=== PATIENT | male | born 1925 | race Caucasian/White ===

== ENCOUNTER 2016-12-24 15:36 | Outpatient (CLI) | payer MEDICARE, OTHER | END 2016-12-24 15:37 | disposition critical access hospital (66) | LOC: EMS 15:36 | PROVIDERS: ATTEND Surgery | DX: R47.9 Unspecified speech disturbances (principal); R15.9 Full incontinence of feces; R32 Unspecified urinary incontinence | CPT/HCPCS: A0425; A0429 ==

== ENCOUNTER 2016-12-24 15:57 | Emergency (ER) | payer MEDICARE, OTHER ==
--- NOTE | 2016-12-24 16:37 | ED Physician Documentation ---
History of Present Illness - Stated complaint Stated Complaint: POSS CVA - Chief complaint Chief Complaint: Neuro - Additonal information Additional information: Patient is a 89-year-old male who has a history of bleeding ulcer in his past status post what appears to be antrectomy possibly vagotomy. This was done many many years ago. He is currently on omeprazole. 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 The patient presents with acute onset of difficulty in speaking. We think that symptoms occurred somewhere after 1:00. There is some data suggesting that he be been normal up to 2 PM but we are not quite 100% sure. Is quite clear however that the onset of symptoms somewhere between 1 and 2:00 probably closer to 2 PM. The patient was in his normal state of health over the last few days without any complaints or problems whatsoever.He was out tending to his lawn and roses earlier in the day and had people come over and had a normal interaction with them sometime between 1 and 2 the patient went to the bathroom had a episode of stool incontinence and had the onset of severe aphasia to the point where he could not speak. He also said that he had some difficulty with the operation of his right arm around this time. He denied any headache, chest pain, shortness of breath nausea vomiting, fever chills or any preceding illness. He denies ever having a stroke before. Review of systems: For pertinent positive and negatives in the review of systems please see history of present illness. Otherwise all other systems have been reviewed and are negative. Dragon disclaimer: Parts of this medical record were created using voice recognition technology. Because of the inherent limitations of this system occasional same sounding word substitutions do occur and persist despite proofreading. Please read the document for context. Review of Systems Ten Systems: 10 systems reviewed and negative Constitutional: denies: Fever, Chills, Myalgias Eyes: denies: Loss of vision, Decreased vision, Photophobia Ears: denies: Loss of hearing, Ear pain, Drainage/discharge Nose: denies: Rhinorrhea / runny nose, Foreign Body Cardiac: denies: Palpitations GI: denies: Abdominal Pain, Abdominal Swelling, Nausea, Vomiting : reports: Incontinent, Hematuria, Discharge. denies: Dysuria, Frequency Musculoskeletal: reports: Neck pain, Back pain. denies: Extremity pain Neurologic: reports: Difficulty speaking. denies: Generalized weakness, Focal weakness, Numbness PD PAST MEDICAL HISTORY - Past Medical History GI: GERD Other Past Medical History: claucoma - Past Surgical History Past Surgical History: Yes - Present Medications Home Medications: Ambulatory Orders Medication Instructions Recorded Confirmed Brimonidine Tartrate/Timolol 1 drops EACHEYE DAILY 12/24/16 12/24/16 [Combigan 0.2%-0.5% Eye Drops] Brimonidine Tartrate/Timolol 1 drops EACHEYE DAILY 12/24/16 12/24/16 [Combigan 0.2%-0.5% Eye Drops] Brinzolamide 1% Ophth Drops [Azopt 1 drops EACHEYE DAILY 12/24/16 12/24/16 1% Ophth Drops] Omeprazole [PriLOSEC] 20 mg PO DAILY 12/24/16 12/24/16 Tamsulosin HCl [Flomax] 0.4 mg PO DAILY 12/24/16 12/24/16 - Allergies Allergies/Adverse Reactions: Allergies Allergy/AdvReac Type Severity Reaction Status Date / Time amoxicillin Allergy Unknown Verified 12/24/16 16:10 - Social History Does the pt smoke?: Yes Smoking Status: Current some day smoker Does the pt drink ETOH?: Yes Does the pt have substance abuse?: No PD ED PE NORMAL - Vitals Vital signs reviewed: Yes - General General: Alert and oriented X 3, No acute distress, Well developed/nourished, Other (Obvious moderate expressive aphasia with loss of fluency and difficulty in finding words) - HEENT HEENT: Atraumatic, PERRL, EOMI, Ears normal, Pharynx benign, Dentition benign - Neck Neck: Supple, no meningeal sign - Cardiac Cardiac: RRR, No murmur, No gallop, No rub - Respiratory Respiratory: No respiratory distress, Clear bilaterally - Abdomen Abdomen: Normal bowel sounds, Soft, Non tender, Non distended - Back Back: No CVA TTP - Derm Derm: Normal color, Warm and dry - Extremities Extremities: No deformity, No tenderness to palpate - Psych Psych: Normal mood, Normal affect - Free text exam Free text exam: Patient is 89-year-old male who ambulates at home with just a cane. 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 He had what we feel is a acute onset of a stroke somewhere around 2 PM. We were not able to nail down the time Conclusively but we think Is pretty close to 2 PM as far as we can tell. On initial presentation the patient had stable vital signs was alert and oriented and on NIH stroke testing he had a moderate aphasia. While he had normal strength in the right upper extremity he was somewhat clumsy in its movement. There is also question of a right sided facial droop that he could overpower on forced smiling. Because of his blindness we could not ascertain visual field cuts. Based on the state I thought that the patient probably had a NIH stroke scale of 4-5 but was concerned about the severe aphasia and got neurology involved at [facility]. A CT scan of the head showed an oldLeft sidedIschemic infarctThat was old and the patient was unaware about. There is no evidence of any acute ischemic infarct. The patient is also given a liter of normal saline. The EKG demonstrates a normal sinus rhythm with chest x-ray shows no acute disease. We felt that given the risk versus benefit that the patient is a good candidate for TPA administration we did discuss the risks and benefits with him and consent was obtained and he was subsequently given TPA here in emergency department. Next a CTA of the head and neck was ordered the results of this are pending. Patient's renal function is normal and routine labs are within normal limits at this time.At this time there is no change in the patient 's status blood pressure is well controlled he is not improved nor worsened and we are awaiting transfer to [facility] via helicopter at this point. Disposition transfer to [facility] Clinical impression: 1. Acute ischemic infarcts and a stroke scale 4-5 with Moderate to severe aphasia Results - Vitals Vitals: Vital Signs - 24 hr 12/24/16 12/24/16 12/24/16 15:58 17:08 17:30 Temperature 35.9 C L Heart Rate 56 L 64 59 L Respiratory 20 18 18 Rate Blood Pressure 168/76 H 184/92 H 184/88 H O2 Saturation 98 96 99 12/24/16 17:33 Temperature Heart Rate 62 Respiratory 16 Rate Blood Pressure 155/94 H O2 Saturation 99 Oxygen O2 Source Room air - Labs Labs: Laboratory Tests 12/24/16 12/24/16 12/24/16 16:05 16:05 16:05 WBC RBC Hgb Hct MCV MCH MCHC RDW Plt Count MPV Neut # Lymph # [place] # Eos # Baso # Absolute Nucleated RBC Nucleated RBCs PT INR APTT 25.1 Sodium 135 Potassium 4.3 Chloride 102 Carbon Dioxide 26 Anion Gap 7.0 BUN 17 Creatinine 1.0 Estimated GFR (MDRD) 70 L Glucose 136 H Calcium 8.8 Total Bilirubin 0.6 AST 23 ALT 16 Alkaline Phosphatase 67 Troponin I < 0.04 Total Protein 7.0 Albumin 3.9 Globulin 3.1 Albumin/Globulin Ratio 1.3 Lipase 26 12/24/16 12/24/16 16:05 16:05 WBC 7.2 RBC 4.43 L Hgb 14.5 Hct 44.1 MCV 99.6 H MCH 32.8 H MCHC 32.9 RDW 13.3 Plt Count 177 MPV 8.8 Neut # 5.0 Lymph # 1.5 [place] # 0.5 Eos # 0.1 Baso # 0.1 Absolute Nucleated RBC 0.00 Nucleated RBCs 0.0 PT 10.9 INR 1.0 APTT Sodium Potassium Chloride Carbon Dioxide Anion Gap BUN Creatinine Estimated GFR (MDRD) Glucose Calcium Total Bilirubin AST ALT Alkaline Phosphatase Troponin I Total Protein Albumin Globulin Albumin/Globulin Ratio Lipase
[2016-12-24 16:39] LABS: ALBUMIN/GLOBULIN RATIO 1.3 (1.0-2.2); BILIRUBIN,TOTAL 0.6 mg/dL (0.2-1.0); CALCIUM 8.8 mg/dL (8.5-10.3); POTASSIUM 4.3 mmol/L (3.5-5.0)
--- NOTE | 2016-12-24 16:52 | CT Preliminary Report ---
Exam: CT Head W/O IMPRESSION: 1. Generalized age-related cortical atrophic changes without evidence of acute intracranial abnormali ty. 2. 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 [facility] The call report notification system was initiated by Dr. David Pascal at 16:44 hrs on 12/24/16. The above findings were discussed with provider Nurse Mariano by Dr. David Pascal at 16:50 hrs on . SITE ID: [id number]
--- NOTE | 2016-12-24 16:55 | CT Report ---
EXAM: CT HEAD EXAM DATE: 12/24/2016 04:34 PM. CLINICAL HISTORY: CVA. COMPARISON: None. TECHNIQUE: Multiaxial CT images were obtained from the foramen magnum to the vertex. IV contrast: Non e. Reformats: Coronal. In accordance with CT protocol optimization, one or more of the following dose reduction techniques w ere utilized for this exam: automated exposure control, adjustment of mA and/or KV based on patient s ize, or use of iterative reconstructive technique. 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 No intraparenchymal hemorrhage. No evidence of mass, midline shift, or CT findings of acute infarction. Weir-white differentiation is distinct. Extraaxial Spaces: Normal for age. No subdural or epidural collections identified. Ventricles: The ventricles and cortical sulci are enlarged, consistent with age-related tissue loss. Sinuses: Imaged paranasal sinuses, orbits, and mastoids show no significant abnormality. Bones: No evidence of fracture or calvarial defect. Other: Diffuse chronic microangiopathic white matter changes are evident. IMPRESSION: 1. Generalized age-related cortical atrophic changes without evidence of acute intracranial abnormali ty. 2. 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 RAD[facility] The call report notification system was initiated by Dr. David Pascal at 16:44 hrs on 12/24/16. The above findings were discussed with provider Nurse Quintana by Dr. David Pascal at 16:50 hrs on . Referring Provider Line: [phone] SITE ID: [id number]
[2016-12-24] MEDS ORDERED: ALTEPLASE 81 MG in WATER FOR INJECTION,STERILE 81 ML IV STA (17:10)
[2016-12-24] MEDS ORDERED: ALTEPLASE 100 MG VIAL IV STA (17:11)
--- NOTE | 2016-12-24 17:16 | XRAY Preliminary Report ---
Exam: XR Chest 1 View IMPRESSION: Normal single view chest. [facility] SITE ID: [id number]
[2016-12-24] MEDS ORDERED: ALTEPLASE 100 MG in WATER FOR INJECTION,STERILE 100 ML IV STA (17:22)
--- NOTE | 2016-12-24 17:30 | XRAY Report ---
EXAM: CHEST RADIOGRAPHY EXAM DATE: 12/24/2016 04:45 PM. CLINICAL HISTORY: Aphasia, mild right upper extremity ataxia. COMPARISON: None. TECHNIQUE: 1 view. FINDINGS: Lungs/Pleura: No focal opacities evident. No pleural effusion. No pneumothorax. Mediastinum: Within exam limitations, cardiomediastinal contour is normal. Other: None. IMPRESSION: Normal single view chest. [facility] Referring Provider Line: [phone] SITE ID: [id number]
[2016-12-24 17:33] VITALS: BP 155/94
[2016-12-24 17:39] LABS: BASOPHILS # (AUTO) 0.1 10^3/uL (0.0-0.1); BASOPHILS % (AUTO) 0.9 %; EOSINOPHILS # (AUTO) 0.1 10^3/uL (0.0-0.7); HCT - HEMATOCRIT 44.1 % (42.0-52.0); HGB - HEMOGLOBIN 14.5 g/dL (14.0-18.0); LYMPHOCYTES # (AUTO) 1.5 10^3/uL (1.5-3.5); LYMPHOCYTES % (AUTO) 21.1 %; MEAN CORPUSCULAR HEMOGLOBIN 32.8 pg (27.0-31.0); MEAN CORPUSCULAR HGB CONC 32.9 g/dL (32.0-36.0); MEAN CORPUSCULAR VOLUME 99.6 fL (80.0-94.0); MEAN PLATELET VOLUME 8.8 fL (7.4-11.4); MONOCYTES # (AUTO) 0.5 10^3/uL (0.0-1.0); MONOCYTES % (AUTO) 7.6 %; NEUTROPHILS % (AUTO) 69.4 %; RED BLOOD COUNT 4.43 10^6/uL (4.70-6.10); RED CELL DISTRIBUTION WIDTH 13.3 % (12.0-15.0); UNCORRECTED WHITE BLOOD COUNT 7.2 x10^3/uL; WHITE BLOOD COUNT 7.2 x10^3/uL (4.8-10.8)
[2016-12-24 17:51] LABS: PT - PROTHROMBIN TIME 10.9 secs (9.9-12.6)
[2016-12-24] MEDS ORDERED: SODIUM CHLORIDE 0.9% 500 ML IV ONE (17:52)
[2016-12-24] MEDS ORDERED: IOPAMIDOL-300 100 ML VIAL IVP ONE (18:22)
--- NOTE | 2016-12-24 18:47 | CT Preliminary Report ---
Exam: CT Head Angio IMPRESSION: 1. Normal CTA of the head. No significant vascular stenosis or aneurysm. [facility] SITE ID: [id number]
--- NOTE | 2016-12-24 18:49 | CT Report ---
EXAM: CT ANGIOGRAM HEAD EXAM DATE: 12/24/2016 06:20 PM. CLINICAL HISTORY: 89-year-old man with aphasia. COMPARISON: Noncontrast head CT done immediately before. TECHNIQUE: Routine helical CTA imaging was performed through the head. IV Contrast: 100 cc Isovue 300 . Reconstructions: Routine multiplanar 3D MIP reconstructions. NASCET Criteria are used for stenosis measurements. In accordance with CT protocol optimization, one or more of the following dose reduction techniques w ere utilized for this exam: automated exposure control, adjustment of mA and/or KV based on patient s ize, or use of iterative reconstructive technique. FINDINGS: CTA HEAD: RIGHT: Visualized Internal Carotid Artery: Patent without significant stenosis. There is atherosclerotic vasyl que along the siphon. No evidence of aneurysm. Anterior Cerebral Artery: Patent without significant stenosis or aneurysm. Middle Cerebral Artery: Patent without significant stenosis or aneurysm. Posterior Cerebral Artery: Patent without significant stenosis or aneurysm. Posterior Communicating Artery: Not well seen. Visualized Vertebral Artery: Patent without significant stenosis or dissection. Mild atherosclerotic plaque is present along the intradural segment. LEFT: Visualized Internal Carotid Artery: Patent without significant stenosis. There is atherosclerotic vasyl que along the siphon. No evidence of aneurysm. Anterior Cerebral Artery: Patent without significant stenosis or aneurysm. Middle Cerebral Artery: Patent without significant stenosis or aneurysm. Posterior Cerebral Artery: Patent without significant stenosis or aneurysm. Posterior Communicating Artery: Not well seen. Visualized Vertebral Artery: Patent without significant stenosis or dissection. CENTRAL: Anterior Communicating Artery: Patent. No aneurysm. Basilar: Patent without significant stenosis, dissection, or aneurysm. Dural Venous Sinuses and Major Central Veins: Patent. The right transverse and sigmoid sinuses are co ngenitally dominant. POSTCONTRAST HEAD: No abnormal enhancement. Please see separate noncontrast exam for complete descrip tion of noncontrast findings. IMPRESSION: 1. Normal CTA of the head. No significant vascular stenosis or aneurysm. [facility] Referring Provider Line: [phone] SITE ID: [id number]
--- NOTE | 2016-12-24 18:55 | CT Report ---
EXAM: CT ANGIOGRAM NECK EXAM DATE: 12/24/2016 06:23 PM. CLINICAL HISTORY: 89-year-old man with aphasia. COMPARISON: None. TECHNIQUE: Routine axial helical imaging was performed from the skull base through the aortic arch. I V Contrast: Yes. Reconstructions: Routine multiplanar 3D MIP reconstructions. Evaluation of arterial stenosis is based on a NASCET method of measurement. In accordance with CT protocol optimization, one or more of the following dose reduction techniques w ere utilized for this exam: automated exposure control, adjustment of mA and/or KV based on patient s ize, or use of iterative reconstructive technique. FINDINGS: Right Carotid: The common carotid artery is patent without significant stenosis. Atherosclerotic plaq ue at the bifurcation result in less than 25% luminal narrowing of the proximal ICA by NASCET criteri a. The remainder of the cervical ICA is patent without significant stenosis. The bifurcation and prox imal cervical ICA are retropharyngeal in course. No evidence of dissection. External carotid artery i s unremarkable. Left Carotid: The common carotid artery is patent without significant stenosis. Atherosclerotic plaqu e, primarily noncalcified, at the bifurcation result in less than 50% luminal narrowing by NASCET cri teria of the proximal ICA. No evidence of dissection. The external carotid artery is unremarkable. Right vertebral: Patent without significant stenosis or dissection. Mild atherosclerotic plaque is pr esent along the intradural segment. Left vertebral: Patent without significant stenosis or dissection. Other: Limited evaluation of the neck soft tissues is unremarkable. Lung apices are clear. General ch anges are present in the cervical spine, but no evidence of acute fracture or malalignment. IMPRESSION: 1. Carotid arteries are patent without significant stenosis or dissection. Atherosclerotic plaque res ult in less than 50% luminal narrowing of the proximal left internal carotid artery and less than 25% luminal narrowing of the proximal right internal carotid artery. 2. Vertebral arteries are pink without significant stenosis or dissection. [facility] Referring Provider Line: [phone] SITE ID: [id number]
== END 2016-12-24 18:30 | disposition short-term general hospital (02) ==
LOC: EDUNIT# → ED 15:57
DX: I63.9 Cerebral infarction, unspecified (principal); R47.01 Aphasia; R29.704 NIHSS score 4; I45.2 Bifascicular block; R94.31 Abnormal electrocardiogram [ECG] [EKG]; N40.0 Benign prostatic hyperplasia without lower urinary tract symptoms; H40.9 Unspecified glaucoma; H54.8 Legal blindness, as defined in USA; Z86.69 Personal history of other diseases of the nervous system and sense organs; Z87.11 Personal history of peptic ulcer disease; K21.9 Gastro-esophageal reflux disease without esophagitis; F17.200 Nicotine dependence, unspecified, uncomplicated
CPT/HCPCS: 36415; 70450; 70496; 70498; 71010; 80053; 83690; 84484; 85025; 85610; 85730; 93005; 96374; 96376; 99284; 99285; J2997; Q9967

== ENCOUNTER 2016-12-27 21:33 | Outpatient (CLI) | payer MEDICARE, OTHER | END 2016-12-27 21:34 | disposition critical access hospital (66) | LOC: EMS 21:33 | PROVIDERS: ATTEND Surgery | DX: R40.20 Unspecified coma (principal) | CPT/HCPCS: A0425; A0427 ==

== ENCOUNTER 2016-12-27 21:48 | Observation (INO) | payer MEDICARE, OTHER ==
--- NOTE | 2016-12-27 22:15 | ED Physician Documentation ---
PD HPI SEIZURE - Stated complaint Stated Complaint: SEIZURE ACTIVITY/STROKE - Chief complaint Chief Complaint: Neuro - History obtained from History obtained from: Friend, EMS - History of Present Illness Timing - onset: Today (Just prior to arrival.) Witnessed: Witnessed Number of seizures: Single, Lasted minutes (Lasted approximately 4 minutes.) Description of seizure activity: Generalized, Tonic clonic Injury during seizure: Bit tongue History of seizures: First seizure Contributing factors: Other (Recent CVA.) Similar symptoms before: Has not had sx before Recently seen: Admitted (Discharged from [facility] today after a four- day hospitalization for ischemic stroke.) - Additional information Additional information: The patient is an 89-year-old male who arrives via ambulance after a witnessed seizure just prior to arrival. 4 days ago he was seen here with a stroke involving the left posterior parietal region. He received TPA and was transported by helicopter to [facility]. He was discharged from that hospital today, about 3 hours ago. He was sitting on the edge of the bed when his daughter noticed his right arm clench, and then he developed generalized tonic-clonic seizure activity. She laid him onto the bed and called 911. She noted frothing from his mouth. When medics arrived the patient was post ictal, with a blood sugar of 148. He remains somnolent upon arrival to the emergency department, but does respond to tactile. He has no prior history of seizure disorder. In addition to recent stroke, he was noted to have atrial fibrillation during his hospitalization. He does not take anticoagulation medication. Review of Systems Unable to obtain: AMS PD PAST MEDICAL HISTORY - Past Medical History Past Medical History: Yes Cardiovascular: Atrial fibrillation Neuro: CVA, TIA GI: GERD - Past Surgical History Past Surgical History: Yes - Present Medications Home Medications: Ambulatory Orders Medication Instructions Recorded Confirmed Brinzolamide 1% Ophth Drops [Azopt 1 drops RIGHTEYE BID 12/24/16 12/28/16 1% Ophth Drops] Omeprazole [PriLOSEC] 20 mg PO BID 12/24/16 12/28/16 Tamsulosin HCl [Flomax] 0.4 mg PO DAILY 12/24/16 12/28/16 Aspirin 325 mg ORAL DAILY 12/28/16 12/28/16 Atorvastatin [Lipitor] 1 tab ORAL DAILY 12/28/16 12/28/16 Bimatoprost 0.01% Ophth Dops 1 drops RIGHTEYE DAILY 12/28/16 12/28/16 [Lumigan 0.01% Ophth Drops] Brimonidine Tartrate/Timolol 1 drops RIGHTEYE BID 12/28/16 12/28/16 [Combigan 0.2%-0.5% Eye Drops] Lisinopril 1 tab ORAL DAILY 12/28/16 12/28/16 - Allergies Allergies/Adverse Reactions: Allergies Allergy/AdvReac Type Severity Reaction Status Date / Time amoxicillin Allergy Unknown Verified 12/24/16 16:10 - Living Situation Living Arrangement: reports: At home - Social History Does the pt smoke?: Yes Smoking Status: Current some day smoker Does the pt drink ETOH?: Yes Does the pt have substance abuse?: No - Immunizations Immunizations are current?: Yes - POLST Patient has POLST: No PD ED PE NORMAL - Vitals Vital signs reviewed: Yes (hypertensive) - General General: Well developed/nourished, Other (Somnolent but responds to tactile stimulation.) - HEENT HEENT: Other (Blindness baseline. Bite arora on the right s) - Neck Neck: No adenopathy, No JVD - Cardiac Cardiac: RRR, No murmur - Respiratory Respiratory: No respiratory distress, Clear bilaterally - Abdomen Abdomen: Soft, Non tender - Back Back: No spinal TTP - Derm Derm: No rash - Extremities Extremities: Other (Trace pedal edema bilaterally.) - Neuro Neuro: Other (Initially somnolent, but gradually recovered to baseline level of awareness over the course of about 30 minutes. No focal motor or sensory deficit.) Results - Vitals Vitals: Vital Signs - 24 hr 12/27/16 12/27/16 12/27/16 21:49 22:39 22:43 Temperature 36.8 C Heart Rate 83 69 Respiratory 10 L 20 Rate Blood Pressure 163/90 H 95/74 139/76 H O2 Saturation 91 L 99 12/27/16 12/27/16 22:54 23:23 Temperature Heart Rate 68 72 Respiratory 18 18 Rate Blood Pressure 142/65 H 145/81 H O2 Saturation 96 100 Oxygen O2 Source Nasal cannula - EKG (time done) 21:56 Rate: Rate (enter#) (79) Rhythm: NSR Intervals: Prolonged PA, RBBB, Other (Left posterior fascicular block.) Compare to prior EKG: Unchanged from prior EKG (12/24/16) Computer interpretation: Agree with computer - Labs Labs: Laboratory Tests 12/27/16 12/27/16 12/27/16 22:00 22:00 22:00 WBC RBC Hgb Hct MCV MCH MCHC RDW Plt Count MPV Neut # Lymph # [place] # Eos # Baso # Absolute Nucleated RBC Nucleated RBCs PT 11.6 INR 1.0 Sodium 138 Potassium 4.0 Chloride 103 Carbon Dioxide 25 Anion Gap 10.0 BUN 24 H Creatinine 0.9 Estimated GFR (MDRD) 79 L Glucose 156 H Lactic Acid Calcium 9.2 Total Bilirubin 0.6 AST 33 ALT 22 Alkaline Phosphatase 64 Troponin I < 0.04 Total Protein 6.9 Albumin 3.8 Globulin 3.1 Albumin/Globulin Ratio 1.2 Lipase 37 Urine Color Urine Clarity Urine pH Ur Specific [place] Urine Protein Urine Glucose (UA) Urine Ketones Urine Occult Blood Urine Nitrite Urine Bilirubin Urine Urobilinogen Ur Leukocyte Esterase Urine RBC Urine WBC Ur Squamous Epith Cells Urine Bacteria Urine Casts Urine Mucus Ur Microscopic Review Urine Culture Comments 12/27/16 12/27/16 12/27/16 22:12 22:15 22:15 WBC 7.8 RBC 4.42 L Hgb 14.8 Hct 44.1 MCV 99.8 H MCH 33.5 H MCHC 33.5 RDW 13.4 Plt Count 181 MPV 8.1 Neut # 4.2 Lymph # 2.5 [place] # 0.8 Eos # 0.2 Baso # 0.0 Absolute Nucleated RBC 0.00 Nucleated RBCs 0.1 PT INR Sodium Potassium Chloride Carbon Dioxide Anion Gap BUN Creatinine Estimated GFR (MDRD) Glucose Lactic Acid 3.6 H* Calcium Total Bilirubin AST ALT Alkaline Phosphatase Troponin I Total Protein Albumin Globulin Albumin/Globulin Ratio Lipase Urine Color YELLOW Urine Clarity HAZY Urine pH 5.5 Ur Specific [place] >=1.030 H Urine Protein 30 H Urine Glucose (UA) NEGATIVE Urine Ketones NEGATIVE Urine Occult Blood MODERATE H Urine Nitrite NEGATIVE Urine Bilirubin NEGATIVE Urine Urobilinogen 0.2 (NORMAL) Ur Leukocyte Esterase NEGATIVE Urine RBC 11-25 H Urine WBC 6-10 H Ur Squamous Epith Cells NONE SEEN Urine Bacteria Few Urine Casts 6-10 Hyaline Casts Urine Mucus Few Strands Ur Microscopic Review INDICATED Urine Culture Comments INDICATED - Rads (name of study) CXR Radiology: Prelim report reviewed, EMP read contemporaneously, See rad report ( Hypoinflation, otherwise unremarkable single view chest.) Head CT w/o Radiology: Prelim report reviewed, EMP read contemporaneously, See rad report ( Stable appearing finding status post left posterior MCA infarct. There is a 3 mm band of left parietal hypodensity which is likely stable and may represent small focus of recent hemorrhage or calcification.) PD MEDICAL DECISION MAKING - ED course Complexity details: reviewed old records, reviewed results, re-evaluated patient , considered differential, d/w patient, d/w family, d/w qm consultant ED course: The patient's presentation is significant for new onset seizure in an elderly male with recent left posterior parietal stroke. CT scan does not reveal acute intracranial hemorrhage. He was postictal upon arrival to the emergency department, but gradually regained his baseline level of awareness. Treatment in the emergency department included administration of normal saline IV. Keppra 500 was mg administered IV after discussion with neurologist, Dr. Quiros, at [facility]. I discussed his condition with the hospitalist, Dr. Cassidy, who will admit him on observation status for further evaluation and treatment. Departure - Departure Disposition: ED Place in Observation Clinical Impression: Seizure, Recent cerebrovascular accident Condition: Stable Discharge Date/Time: 12/28/16 01:45
[2016-12-27 22:19] LABS: PT - PROTHROMBIN TIME 11.6 secs (9.9-12.6)
[2016-12-27 22:24] LABS: BASOPHILS % (AUTO) 0.6 %; EOSINOPHILS # (AUTO) 0.2 10^3/uL (0.0-0.7); EOSINOPHILS % (AUTO) 2.3 %; HCT - HEMATOCRIT 44.1 % (42.0-52.0); HGB - HEMOGLOBIN 14.8 g/dL (14.0-18.0); LYMPHOCYTES # (AUTO) 2.5 10^3/uL (1.5-3.5); LYMPHOCYTES % (AUTO) 32.2 %; MEAN CORPUSCULAR HEMOGLOBIN 33.5 pg (27.0-31.0); MEAN CORPUSCULAR HGB CONC 33.5 g/dL (32.0-36.0); MEAN CORPUSCULAR VOLUME 99.8 fL (80.0-94.0); MEAN PLATELET VOLUME 8.1 fL (7.4-11.4); MONOCYTES # (AUTO) 0.8 10^3/uL (0.0-1.0); MONOCYTES % (AUTO) 10.8 %; NEUTROPHILS # (AUTO) 4.2 10^3/uL (1.5-6.6); NEUTROPHILS % (AUTO) 54.1 %; NUCLEATED RED BLOOD CELLS AUTO 0.1 /100WBC; RED BLOOD COUNT 4.42 10^6/uL (4.70-6.10); RED CELL DISTRIBUTION WIDTH 13.4 % (12.0-15.0); UNCORRECTED WHITE BLOOD COUNT 7.8 x10^3/uL; WHITE BLOOD COUNT 7.8 x10^3/uL (4.8-10.8)
[2016-12-27 22:27] LABS: ALBUMIN/GLOBULIN RATIO 1.2 (1.0-2.2); BILIRUBIN,TOTAL 0.6 mg/dL (0.2-1.0); CALCIUM 9.2 mg/dL (8.5-10.3); CREATININE 0.9 mg/dL (0.6-1.2); TOTAL PROTEIN 6.9 g/dL (6.7-8.2)
[2016-12-27 22:27] LABS: BILIRUBIN,URINE NEGATIVE (NEGATIVE); PH,URINE 5.5 PH (5.0-7.5)
[2016-12-27 22:41] LABS: UA w/ MICROSCOPIC CHARGE YES
[2016-12-27 22:42] LABS: UR CULTURE IF IND INDICATED
--- NOTE | 2016-12-27 22:57 | XRAY Preliminary Report ---
Exam: XR Chest 1 View IMPRESSION: Hypoinflation, otherwise unremarkable single view chest. [facility] SITE ID: [id number]
--- NOTE | 2016-12-27 23:00 | CT Preliminary Report ---
Exam: CT Head W/O IMPRESSION: Stable appearing finding status post left posterior MCA infarct. There is a 3 mm band of left parietal high density which is likely stable and may represent small focus of recent hemorrhage or calcification. [facility] SITE ID: [id number]
--- NOTE | 2016-12-27 23:00 | XRAY Report ---
EXAM: CHEST RADIOGRAPHY EXAM DATE: 12/27/2016 10:35 PM. CLINICAL HISTORY: Comatose. Vomiting. ?Aspiration. COMPARISON: 12/24/2016. TECHNIQUE: 1 view. FINDINGS: Lungs/Pleura: Hypoinflated lungs. No focal opacities evident. No pleural effusion. No pneumothorax. Mediastinum: Within exam limitations, cardiomediastinal contour is normal. Other: No bony abnormalities noted. IMPRESSION: Hypoinflation, otherwise unremarkable single view chest. [facility] Referring Provider Line: [phone] SITE ID: [id number]
--- NOTE | 2016-12-27 23:03 | CT Report ---
EXAM: CT HEAD EXAM DATE: 12/26/2016. CLINICAL HISTORY: Head CT/CTA 12/24/2016 and brain MRI 12/24/2016 COMPARISON: Seizure, recent CVA. TECHNIQUE: Multiaxial CT images were obtained from the foramen magnum to the vertex. IV contrast: Non e. Reformats: Coronal. In accordance with CT protocol optimization, one or more of the following dose reduction techniques w ere utilized for this exam: automated exposure control, adjustment of mA and/or KV based on patient s ize, or use of iterative reconstructive technique. FINDINGS: Parenchyma: There are subtle areas of cortical low density in the left posterior frontal and parietal lobe. There is a 3 mm high density referral band in the left parietal lobe which is likely stable. T here is a remote left occipital infarct. There is remote a left basal ganglia lacunar infarct. Extraaxial Spaces: Diffusely enlarged. Ventricles: The ventricles and cortical sulci are enlarged, consistent with age-related tissue loss. Sinuses: Imaged paranasal sinuses, orbits, and mastoids show no significant abnormality. Bones: No evidence of fracture or calvarial defect. Other: Diffuse chronic microangiopathic white matter changes are evident. IMPRESSION: Stable appearing finding status post left posterior MCA infarct. There is a 3 mm band of left parietal high density which is likely stable and may represent small focus of recent hemorrhage or calcification. [facility] Referring Provider Line: [phone] SITE ID: [id number]
[2016-12-27] MEDS ORDERED: levETIRAcetam INJ 1,000 MG in SODIUM CHLORIDE 0.9% 100ML 100 ML IV STA (23:56)
[2016-12-28] MEDS ORDERED: SODIUM CHLORIDE FLUSH 0.9% 10 ML SYRINGE IVP PRN (00:25)
[2016-12-28] MEDS ORDERED: ONDANSETRON ODT 4 MG TABLET TL PRN (00:25)
[2016-12-28] MEDS ORDERED: PROCHLORPERAZINE 10 MG/2 ML VIAL IVP PRN (00:25)
[2016-12-28] MEDS ORDERED: ACETAMINOPHEN 325 MG TABLET PO PRN (00:25)
[2016-12-28] MEDS ORDERED: ONDANSETRON 4 MG/2 ML VIAL IVP PRN (00:25)
[2016-12-28] MEDS ORDERED: HYDROcod/ACETAM 5/325 MG TABLET PO PRN (00:25)
[2016-12-28] MEDS ORDERED: levETIRAcetam 250 MG TABLET PO SCH ×2 (00:31→09:00)
[2016-12-28] MEDS ORDERED: SODIUM CHLORIDE FLUSH 0.9% 10 ML SYRINGE IVP SCH (06:00)
--- NOTE | 2016-12-28 08:04 | Discharge Plan ---
Discharge Plan Disposition: Home, Self Care Condition: Good Prescriptions: levETIRAcetam [Keppra] 1,000 mg PO BID #80 tablet Diet: Cardiac Activity Restrictions: Activity as Tolerated Shower Restrictions: No Driving Restrictions: No Assistance Devices: Walker, Cane Weight Bearing: Full Weight Instruction Topics: ED Seizure New Onset Unk Cause Ch Additional Instructions or Follow Up instructions: Please take all home medication as prescribed. You have been given Keppra for seizures. Please take medication as prescribed. You will need to make an appointment with the neurologist this week for new onset seizures Please follow a diet that is heart healthy. Be sure to drink plenty of water daily.Avoid soda and limit caffeine. Please make sure you get exercise daily. Walking is the best exercise in the day. Please get plenty of sleep at night. If you snore, please see your doctor for a sleep study, you may have sleep apnea and this can affect your heart. Please be sure to see your primary care doctor within 1 week of discharge. You will also need to see the neurologist for new seizures. Please return to the ER if you have repeat symptoms. Call 911 if you have chest pain or shortness of breath. Follow-Up Care: Home Health - PT, Home Health - OT No Smoking: If you smoke, Please STOP! Call for help. Follow-up with: Ermias Ramsey MD [Provider Admit Priv/Credential] -
[2016-12-28] MEDS ORDERED: LISINOPRIL 5 MG TABLET PO SCH (09:00)
[2016-12-28] MEDS ORDERED: BIMATOPROST 0.01% OPHTH DROPS 2.5 ML RIGHTEYE SCH (09:00)
[2016-12-28] MEDS ORDERED: POLYETHYLENE GLYCOL 3350 17 GM PACKET PO SCH (09:00)
[2016-12-28] MEDS ORDERED: BRINZOLAMIDE 1% OPHTH DROPS RIGHTEYE SCH (09:00)
[2016-12-28] MEDS ORDERED: ASPIRIN 325 MG TABLET PO SCH (09:00)
[2016-12-28 09:13] LABS: ALBUMIN/GLOBULIN RATIO 1.3 (1.0-2.2); BILIRUBIN,TOTAL 0.9 mg/dL (0.2-1.0); CALCIUM 8.5 mg/dL (8.5-10.3); CREATININE 0.7 mg/dL (0.6-1.2); POTASSIUM 4.2 mmol/L (3.5-5.0); TOTAL PROTEIN 5.8 g/dL (6.7-8.2)
--- NOTE | 2016-12-28 12:56 | DISCHARGE SUMMARY ---
"Discharge Summary Admit Date: 12/28/16 Discharge Date: 12/28/16 (home) Discharging Provider: Diana Castaneda Primary Care Provider: Ermias Ramsey Code Status: Do Not Attempt Resuscitation Condition at Discharge: Good Discharge Disposition: 01 Home, Self Care - DIAGNOSES Admission Diagnoses: 1. Acute seizure activity unspecified secondary to Cerebral infarction, sequela 2. Hyperglycemia, unspecified 3. 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 Lactic acidosis 5. Glaucoma, unspecified 6. obesity with BMI>30 Discharge Diagnoses with Status of Each Condition: 1. Acute seizure activity unspecified secondary to Cerebral infarction, sequela 2. Hyperglycemia, unspecified 3. 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 Lactic acidosis 5. Glaucoma, unspecified 6. obesity with BMI>30 - HPI History of Present Illness: The patient is an 89-year-old male who arrives via ambulance to the ER after a witnessed seizure just prior to arrival. prior, 4 days ago he was seen here with a stroke involving the left posterior parietal region. He received TPA in the ER and was transported by helicopter to [facility]. He was discharged from that hospital today, about 3 hours ago. He was sitting on the edge of the bed when his daughter noticed his right arm clench, and then he developed generalized tonic-clonic seizure activity. She laid him onto the bed and called 911. She noted frothing from his mouth. When medics arrived the patient was post ictal, with a blood sugar of 148. Patient was admitted into observation with Dr Gray for further evaluation. Of note, He has no prior history of seizure disorder. In addition to recent stroke, he was noted to have atrial fibrillation during his hospitalization. He does not take anticoagulation medication. - CONSULTS | PROCEDURES Consultations: telemedicine with neurology Procedures: MRI- Impression - HOSPITAL COURSE Hospital Course: Patient is a 89 year old elderly gentleman who was admitted with recent seizure today after being discharged from [facility] for CVA. He was placed on the med surg floor and started on Keppra in the ER after speaking with neurology at [facility]. He had elevated blood glucose on admission which was managed with sliding scale insulin. He continued on a cardiac diet. He continued on his eye drops for glucoma, continued with home blood pressure medications, on fall precautions and underwent a head MRI morning of discharge. He remained on statin and aspirin therapy. He continued on medications for AFib. His daughter, who is his caregiver remained at bedside. He had cardiac enzymes trended that were negative and CBC and CMP showed no significant abnormal values. His urinalysis was with no acute UTI. He was talking and ambulating with assist on the day of discharge. He was given prescription for Keppra and referral to neurology and cardiology at discharge. Patient was referred to [facility] for neurology with Dr Jolly Mcclure. Both daughter and patient were given referral information. Fede was stable to return home and had been seizure free since taking Keppra. - ALLERGIES Allergies/Adverse Reactions: Allergies Allergy/AdvReac Type Severity Reaction Status Date / Time amoxicillin Allergy Unknown Verified 12/24/16 16:10 - MEDICATIONS Home Medications: Ambulatory Orders Medication Instructions Recorded Confirmed Brinzolamide 1% Ophth Drops [Azopt 1 drops RIGHTEYE BID 12/24/16 12/28/16 1% Ophth Drops] Omeprazole [PriLOSEC] 20 mg PO BIDAC 12/24/16 12/28/16 Tamsulosin HCl [Flomax] 0.4 mg PO QPM 12/24/16 12/28/16 Aspirin 325 mg ORAL DAILY 12/28/16 12/28/16 Atorvastatin [Lipitor] 10 mg ORAL DAILY 12/28/16 12/28/16 Bimatoprost 0.01% Ophth Dops 1 drops RIGHTEYE DAILY 12/28/16 12/28/16 [Lumigan 0.01% Ophth Drops] Brimonidine Tartrate/Timolol 1 drops RIGHTEYE BID 12/28/16 12/28/16 [Combigan 0.2%-0.5% Eye Drops] Lisinopril 5 mg ORAL DAILY 12/28/16 12/28/16 levETIRAcetam [Keppra] 1,000 mg PO BID #80 tablet 12/28/16 - PHYSICAL EXAM AT DISCHARGE General Appearance: positive: No acute distress, Alert Eyes Bilateral: positive: PERRL, No lid inflammation ENT: positive: Pharynx nml, No signs of dehydration Neck: positive: Thyroid nml, No JVD, Trachea midline Respiratory: positive: No respiratory distress, Breath sounds nml Cardiovascular: positive: No murmur, No gallop, Irregularly irregular. negative : Tachycardia, Gallop/S4 Peripheral Pulses: positive: 2+ Abdomen: positive: No organomegaly, Nml bowel sounds, No distention. negative: Guarding, Rebound Back: negative: CVA tenderness (R), CVA tenderness (L) Skin: positive: No rash, Warm, Dry Extremities: positive: Nml appearance. negative: Calf tenderness Neurologic/Psychiatric: positive: Oriented x3, Motor nml, Sensation nml, Mood/ affect nml, Weakness. negative: Facial droop, Slurred/abnml speech Physical Exam Other/Comments: Patient is status post stroke. Daughter states he is at baseline from when he left [facility]. - LABS Result Diagrams: 12/27/16 22:15 12/28/16 08:50 Other Lab Results: Abnormal Lab Results 12/27/16 12/27/16 12/27/16 22:00 22:12 22:15 RBC 4.42 10^6/uL L 10^6/uL (4.70-6.10) MCV 99.8 fL H fL (80.0-94.0) MCH 33.5 pg H pg (27.0-31.0) Anion Gap BUN 24 mg/dL H mg/dL (6-20) Estimated GFR (MDRD) 79 L (>89) Glucose 156 mg/dL H mg/dL (70-100) Lactic Acid Total Protein Ur Specific [place] >=1.030 H (1.002-1.030) Urine Protein 30 mg/dL H mg/dL (NEGATIVE) Urine Occult Blood MODERATE H (NEGATIVE) Urine RBC 11-25 /HPF H /HPF (0-5) Urine WBC 6-10 /HPF H /HPF (0-3) 12/27/16 12/28/16 22:15 08:50 RBC MCV MCH Anion Gap 4.0 L (6-13) BUN Estimated GFR (MDRD) Glucose 109 mg/dL H mg/dL (70-100) Lactic Acid 3.6 mmol/L H* mmol/L (0.5-2.2) Total Protein 5.8 g/dL L g/dL (6.7-8.2) Ur Specific [place] Urine Protein Urine Occult Blood Urine RBC Urine WBC - DIAGNOSTIC IMAGING Diagnostic Imaging Results: Prelim report reviewed (unable to read MRI since report still pending at discharge. family was ok with leaving prior to report completed. ) - FOLLOW UP Follow Up: Patient and daughter verbally understood they are to followup with Neurology and Cardiology within the first week of being home. Dr Jolly Mcclure and [facility] were given for referral. Patient is to see Dr Ermias Ramsey within the week for PCP hesham."
[2016-12-28 13:39] VITALS: BP 132/77
--- NOTE | 2016-12-28 14:32 | MRI Preliminary Report ---
Exam: MRI Brain W/O IMPRESSION: 1. Compared to MR 12/24/2016 there appear to be new acute infarcts of the retrolenticular left interna l capsule and anterior left insula. No evidence of hemorrhagic transformation. 2. Compared to MR 12/24/2016 there has been progressive evolution of previously seen left frontal, pos terior left frontal, and left parietal lobe infarcts. Areas of petechial hemorrhage appear unchanged from prior study. No definite new hemorrhages seen. [facility] The above findings were discussed with Nurse Practitioner Tonya by Dr. Dontae Franks at 1 4:30 hrs on 12/28/16. SITE ID: [id number]
--- NOTE | 2016-12-28 14:35 | MRI Report ---
EXAM: MRI BRAIN WITHOUT CONTRAST EXAM DATE: 12/28/2016 12:50 PM. CLINICAL HISTORY: New seizure after stroke/TPA. COMPARISON: MR brain 12/24/2016. TECHNIQUE: Multiplanar, multisequence T1-weighted and fluid-sensitive MR sequences of the brain were performed. Sequences optimized for routine evaluation. Other: None. IV Contrast: None. FINDINGS: Brain Volume: Moderate cortical volume loss. Parenchyma/Dura: Compared to MR 12/24/2016 there appear to be new punctate restricted diffusion involving the retrolent icular left internal capsule restricted diffusion involving the cortical mantle of the anterior left insula. Compared to MR 12/24/2016 there are areas of restricted diffusion seen involving the left frontal lobe , posterior left frontal lobe, left parietal lobe that demonstrate progressive evolution from 12/25/19 17. The areas of prior infarct demonstrate increasing T2/FLAIR signal hyperintensity consistent with evolving change. There is additional mild to moderate T2/FLAIR signal hyperintensity seen at appear s imilar to 12/24/2016. There is susceptibility artifact seen within posterior left frontal lobe (series 801, image 20 and se luis 801, image 17) similar to 12/24/2016. No new definite areas of abnormal parenchymal susceptibilit y artifact seen. Pituitary: Normal. Ventricles/Cisterns: No definite abnormal extra-axial fluid collection/mass seen. Ventricles and sulc i are prominent but appropriate for the extent of volume loss. Ventricular size and configuration apollo ears similar to prior study. Cisterns are patent. Sinuses: The visualized paranasal sinuses, mastoid air cells and middle ear cavities are clear. Orbits: Changes of bilateral lens replacement. Bones: Normal. Other: Visualized major intracranial flow voids appear maintained. IMPRESSION: 1. Compared to MR 12/24/2016 there appear to be new acute infarcts of the retrolenticular left interna l capsule and anterior left insula. No evidence of hemorrhagic transformation. 2. Compared to MR 12/24/2016 there has been progressive evolution of previously seen left frontal, pos terior left frontal, and left parietal lobe infarcts. Areas of petechial hemorrhage appear unchanged from prior study. No definite new hemorrhages seen. [facility] The above findings were discussed with Nurse Practitioner Tonya by Dr. Dontae Franks at 1 4:30 hrs on 12/28/16. Referring Provider Line: [phone] SITE ID: [id number]
[2016-12-28] MEDS ORDERED: ATORVASTATIN 10 MG TABLET PO SCH (21:00)
[2016-12-28] MEDS ORDERED: TAMSULOSIN 0.4 MG CAPSULE PO SCH (21:00)
--- NOTE | 2016-12-29 09:43 | HISTORY & PHYSICAL EXAMINATION ---
DATE OF ADMISSION: 12/28/2016 DATE OF ADMISSION: 12/27/2016. PRIMARY CARE PROVIDER: Ermias Ramsey MD. ADMITTING PROVIDER: Zenaida Cassidy MD. CHIEF COMPLAINT: Seizure. He is an 89-year-old white male who lives in his own farm. 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 He is sti ll relatively independent, but his ability to be mobile was limited by his blindness. However, he was still walking 1/4 of a mile down [place] the post office and [place], but a gentle mild deterioration becaus e of aging, but was doing well. He presented December 24 with a sudden onset of aphasia and bowel incon tinence and right body weakness. He was a candidate for TPA here in the emergency room, was given TPA and then transferred to [facility]. He was just discharged from [facility] today. He was found to have new onset atrial fibrillation, and elevated sugar that was not quite at cut-off for diabetes. M edications at discharge were aspirin, atorvastatin, lisinopril. He was to get a repeat echo and be se en by Cardiology within the next 2 weeks and at that point started on anticoagulation. He came home today. Had probably been home about 3 hours when he had a witnessed seizure with loss of consciousness. He was brought in by EMS. 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 A 3 mm band of left parietal high density pillo t represents a small focus of recent hemorrhage or calcification. His December 24 CT scan did show old stroke that was news to the patient. This was even before he presented with the new stroke findings o n December 24. He was initially hypotensive at 95/74, but since being given Keppra his blood pressures have been in the 130s to 140 systolic. He is afebrile, not requiring any oxygen. He is mildly confused, has blood in his mouth where he has bitten his tongue. Dr. Amaya has spoken to [facility] who would like the patie nt given Keppra, observed overnight, repeat imaging tomorrow morning in the form of MRI, then be seen in followup in the next few days by Neurology. He is accompanied by one of his daughters. History is obtained from the EMR, Dr. Amaya, and his daughter. The patient, himself, is intermittently confused , and while verbal and able to answer questions, not always consistently. PAST MEDICAL HISTORY 1. Embolic CVA as above. 2. New atrial fibrillation diagnosed this week. Echocardiogram done at [facility]. 3. Peripheral vascular disease in the form of mild carotid stenosis, but not significant enough to op erate on. 4. Benign prostatic hypertrophy. 5. Osteoarthritis, status post bilateral total hip replacements. 6. History of peptic ulcer disease with vagotomy and antrectomy. 7. Elevated glucose, not meeting criteria for formal diabetes according to his daughter. This is a [facility] diagnosis. ALLERGIES: AMOXICILLIN. MEDICATIONS: 1. Aspirin 325 mg a day. 2. Lisinopril 5 mg a day. Prior to his stroke he did not have a diagnosis of high blood pressure. She said that during his [facility] hospitalization his blood pressure was high enough they wanted him on blood pressure pills. 3. Omeprazole 20 mg a day. 4. Flomax 0.4 mg extended release in the evening. 5. Azopt ophthalmic solution 1 drop right eye b.i.d. 6. Brimonidine ophthalmic solution with Timolol 1 drop right eye b.i.d. 7. Lumigan ophthalmic solution 1 drop right eye daily. SOCIAL HISTORY: He smokes. Has done so since about the age of 20. He will smoke 1/2 pack a day, then quit for weeks to months at a time, then resume. This has been ongoing since the age of 20, so we are unable to quantify how much he is smoking. He has about 2 drinks, but not very frequently. He has no history of alcohol abuse. He was born in [place], been [place] on the [place]. He is from his and she lives in [place]. He lives on his own property and farm. They were actually in the process of getting it ready for sale, and he was going to move in with his daugh denisse in [place]. She added a room to her house and has finished construction. Things were going along in a slow pace, but with this stroke, everything has been rushed forward. Her brother will be coming in to pack up the patient's house, and help him move in with her sooner rather than later. His power of state attorney is actually another daughter named Kira who lives in [place] and will be flying in [place] . FAMILY HISTORY: Mom in her 90s of old age, dad in his 90s of old age. He has 1 sister who i s 98 and alive and healthy, another sister who is 90 and healthy. He lost 1 brother to mesothelioma i n his 70s. One sister of old age. His 3 children are healthy. REVIEW OF SYSTEMS: Review of systems is obtained from both the daughter and the patient. CONSTITUTIONALLY: He feels that prior to this stroke he was not having any problems with fevers, chil ls, unexpected weight changes or fatigue. He felt great. 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 No blurred vis ion with this episode of seizures or stroke. ENT: Mouth: His mouth is now quite sore and bitten and has dried blood in the corners of his mouth be cause of the seizures. Teeth are not a problem. He has no problems with swallowing. He is a little bi t deaf. CARDIOVASCULAR; Diagnosed with new onset atrial fibrillation or just new atrial fibrillation with thi s stroke, but he has no history of myocardial infarction, orthopnea, chest pain, edema, palpitations. RESPIRATORY: Occasionally he coughs the more he smokes. But he does not find that it is plaguing him. He has no phlegm production. No pleuritic chest pain. No shortness of breath. GI: Usually has a great appetite. Ever since he had his antrectomy and gastrectomy things go really w ell for him and he has never had any more abdominal pain. He does find that when he eats a high fiber diet things "go right through me" and he will have frequent bowel movements. That has remained uncha nged. : He has decreased stream, urgency, frequency, nocturia, that has been mildly improved with Flomax. MUSCULOSKELETAL: He does have mild osteoarthritis pains in his knees and hips. Occasionally in his ne ck, but nothing severe. He says he is stiff in the morning, but pretty good by the time he gets to [facility]. This was all prior to his stroke on December 24. SKIN: No rashes, no new lesions. No moles that are new. NEUROLOGICAL: No dementia. Independent. Right now his stroke with TPA his changed thing is that he is getting confused and needs prompting. He is not safe to be at home. The seizure is the first one he has ever had. PSYCHIATRIC: Occasionally he gets depressed because he is needing to lean on his kids more and more, but his daughter says the depression quickly passes after an hour. ENDOCRINE: No polyuria, no polydipsia, no polyphagia. HEME/LYMPH: No bruising, bleeding. ALLERGY/IMMUNOLOGY: No seasonal allergies. No sneezing. No runny nose. VITAL SIGNS: Temperature is 36.8, pulse is 76, blood pressure 132/66, respirations 20, 94% on 2 liter s. He is a tall, moderately overweight elderly gentleman rolled over on his right side, curled up sle eping, snoring, flat facies. A gentle shake on his shoulder wakes him up easily, but he is oriented t o place in that he knows is in the hospital, but does not know if it is [facility] or [facility], does not know why he is here and is a little bit confused. He recognizes his daughter immediately when she wal ks in the room. He is in no acute distress. HEENT: Head and neck shows him to be a balding elderly gentleman. Flat facies, more from being woken up from sleep, but not true hemiplegia. The right sclera is red and injected. Both sclerae are swolle n. Pupils are irregular in size, but reactive to light and accommodation. Low hoarse voice. Lips have dried blood at the corners of each side. Tongue is bruised and bitten. NECK: Supple without carotid bruits or goiter. LUNGS: Lungs have coarse upper airway sounds and I think this gentleman probably has some post nasal drip with sonorous respiration, but he does not have increased respiratory effort. No crackles, rhonc hi, or wheezing. PMI is normally placed with distant cardiac tones and a regular rate and rhythm even though he has a history of atrial fibrillation. EKG in our emergency room before TPA showed a right bundle branch block, a left anterior fascicular b lock and sinus. Today the EKG from December 27 shows sinus rhythm with the same right bundle branch blo ck and left block. No acute ST changes. No sign of the atrial fibrillation that was seen at [facility]. CT of the head as above. ABDOMEN: Obese, soft, nontender. He has a large vertical right para-midline incision. No incisional h ernia at this time. He does have a large diastasis in the right lower quadrant. Underneath his large abdominal pannus there is no francois. He has a small uncircumcised penis, mild scrotal edema. EXTREMITIES: Warm without edema. The anterior tib fib area has areas where he has had old bruises pillo t have healed. Mild osteoarthritic deformities of his fingers and toes. No clubbing or cyanosis. NEURO: In spite of his confusion and lack of complete orientation, he follows commands. For instance, I ask him to lift up his left arm and he does, lift up both legs, he does. Lift up only the right le g he does. Flat facies, but no true facial droop. Tongue midline. No baseline tremors. Hand grasp str ength is intact. The right weakness that was present on December 24 is not present today. Plantar and d orsiflexion strength testing normal. Toes downgoing. The only finding on neurological exam today is h is confusion. Sodium 138, potassium 4, BUN 24, creatinine 0.9, random glucose 156, lactic acid 3.6. Liver enzymes n ormal. Troponin less than 0.04. White cell count 7.8, hemoglobin 14.8, hematocrit 44.1. Urinalysis tonight has proteinuria, hematuria, 11 to 25 red cells, 6 to 10 white cells, a few urine b acteria, no squamous cells, hyaline casts, stranding, and culture is indicated. Head CT and EKG as above. ASSESSMENT AND PLAN: 1. Seizure with post-ictal state, attributed to irritation from previous stroke. Will place the patie nt in observation. Monitor on telemetry because of his history of atrial fibrillation. Recheck imagin g as requested by [facility] with MRI without contrast in the morning. Frequent neuro checks. Continue t o load Keppra. Plan is 1 midnight stay only. I anticipate him being discharged after his MRI and have spoken to his daughter. 2. History of atrial fibrillation, currently sinus. Get old records from [facility] in the form of the e chocardiogram. 3. Hyperglycemia history. Random glucose 150's. He may actually be a diabetic with a fasting greater than 130. Nevertheless, do point of care glucose testing with low dose sliding scale, if necessary. 4. Abnormal urinary constituents indicating possible urinary tract infection in a gentleman who has p rostatitis. Start quinolone, check culture result. Continue Flomax. 5. Glaucoma. Resume eye drops. 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 6. Hypertension. In light of a recent stroke, we do not aim for normal blood pressure in the first co uple of weeks. Nevertheless on lisinopril, will resume that medication. 7. Recent ischemic cerebrovascular accident on top of old left cerebrovascular accident. Resume Lipit or, aspirin, and lisinopril. 8. Lactic acidosis. Attributed to seizure with muscle enzyme release. Has already received hydration in the emergency room and will hydrate 1 more liter. Recheck level in the morning. Not attributed to infection since no fever, no white cell count. 9. DO NOT RESUSCITATE STATUS. 10. DVT prophylaxis with ABHIJIT kauffman. JOB #: [id number] EXT JOB #:[id number]
== END 2016-12-28 15:39 | disposition home or self-care (01) ==
LOC: EDUNIT# → ED 21:48 → MS 12-28 00:25
PROVIDERS: ADMIT Specialist; ATTEND Nurse Practitioner
DX: I69.398 Other sequelae of cerebral infarction (principal); R56.9 Unspecified convulsions; R73.9 Hyperglycemia, unspecified; E87.2 Acidosis; H40.9 Unspecified glaucoma; E66.9 Obesity, unspecified; Z68.31 Body mass index [BMI] 31.0-31.9, adult; I48.91 Unspecified atrial fibrillation; I10 Essential (primary) hypertension; I73.9 Peripheral vascular disease, unspecified; K21.9 Gastro-esophageal reflux disease without esophagitis; N41.9 Inflammatory disease of prostate, unspecified; N40.1 Benign prostatic hyperplasia with lower urinary tract symptoms; R35.0 Frequency of micturition; R35.1 Nocturia; R39.15 Urgency of urination; F17.210 Nicotine dependence, cigarettes, uncomplicated; Z79.82 Long term (current) use of aspirin; Z96.643 Presence of artificial hip joint, bilateral; Z87.11 Personal history of peptic ulcer disease; Z90.3 Acquired absence of stomach [part of]; Z66 Do not resuscitate
CPT/HCPCS: 36415; 70450; 70551; 71010; 80053; 81001; 83605; 83690; 84484; 85025; 85610; 87086; 93005; 96374; 99234; 99284; 99285; A9270; 81003

== ENCOUNTER 2017-01-07 10:52 | Outpatient (CLI) | payer OTHER ==
--- NOTE | 2017-01-11 08:36 | Ultrasound Report ---
RIGHT LEG VENOUS DUPLEX: 01/07/2017 CLINICAL INDICATION: Localized edema. TECHNIQUE: Real-time sonographic vascular imaging was performed by the vacuum tester cans through the right lower extremity utilizing both color flow and Doppler spectral analysis. Multiple leather goods sales representative sta tic images were saved for review. FINDINGS: A right lower extremity venous sonogram is performed revealing the common femoral, superfic ial femoral, profunda femoris, and popliteal veins to be adequately visualized without intraluminal d efects. There is normal venous compression, augmentation, phasicity, and spontaneity of venous flow. In the calf, the visualized more cephalad portions of posterior tibial and peroneal veins are grossl y compressible, without filling defects. IMPRESSION: NO EVIDENCE OF DEEP VENOUS THROMBOSIS. JOB #: [id number] EXT JOB #:[id number]
== END 2017-01-07 10:53 | disposition home or self-care (01) ==
LOC: DI 10:52
PROVIDERS: ATTEND Internal Medicine
DX: R60.0 Localized edema (principal)

== ENCOUNTER 2017-03-12 16:36 | Emergency (ER) | payer OTHER ==
[2017-03-12] MEDS ORDERED: SODIUM CHLORIDE FLUSH 0.9% 10 ML SYRINGE IVP ONE (18:48)
[2017-03-12 20:27] LABS: BASOPHILS % (AUTO) 0.7 %; EOSINOPHILS # (AUTO) 0.2 10^3/uL (0.0-0.7); EOSINOPHILS % (AUTO) 2.7 %; HCT - HEMATOCRIT 42.3 % (42.0-52.0); HGB - HEMOGLOBIN 14.1 g/dL (14.0-18.0); MEAN CORPUSCULAR HEMOGLOBIN 32.9 pg (27.0-31.0); MEAN CORPUSCULAR HGB CONC 33.3 g/dL (32.0-36.0); MEAN CORPUSCULAR VOLUME 98.7 fL (80.0-94.0); MEAN PLATELET VOLUME 9.1 fL (7.4-11.4); MONOCYTES # (AUTO) 0.7 10^3/uL (0.0-1.0); MONOCYTES % (AUTO) 10.1 %; NEUTROPHILS # (AUTO) 4.1 10^3/uL (1.5-6.6); NEUTROPHILS % (AUTO) 58.5 %; RED BLOOD COUNT 4.29 10^6/uL (4.70-6.10); RED CELL DISTRIBUTION WIDTH 12.9 % (12.0-15.0)
[2017-03-12 20:35] LABS: ALBUMIN/GLOBULIN RATIO 1.2 (1.0-2.2); BILIRUBIN,TOTAL 0.5 mg/dL (0.2-1.0); CALCIUM 8.5 mg/dL (8.5-10.3); CREATININE 0.9 mg/dL (0.6-1.2); PHOSPHORUS 3.1 mg/dL (2.5-4.6); POTASSIUM 4.2 mmol/L (3.5-5.0); TOTAL PROTEIN 6.3 g/dL (6.7-8.2)
[2017-03-12 20:36] VITALS: BP 124/64
--- NOTE | 2017-03-12 20:45 | ED Physician Documentation ---
History of Present Illness - Stated complaint Stated Complaint: DIZZYNESS - Chief complaint Chief Complaint: General - History obtained from History obtained from: Patient, Family - History of Present Illness Timing: Today - Additonal information Additional information: Patient is a 89 year old male with a history of intermittent bradycardia who came to the emergency department for generalized weakness. patient states that he had an episode this morning. Patient denies any focal neurological deficit. Upon my initial evaluation in the emergency department patient states that his symptoms had improved and that we wanted to go home. Review of Systems Constitutional: denies: Fever, Chills Eyes: denies: Decreased vision, Photophobia Ears: denies: Ear pain, Drainage/discharge Nose: denies: Congestion Throat: denies: Sore throat Cardiac: denies: Chest pain / pressure, Palpitations Respiratory: denies: Cough, Wheezing GI: denies: Nausea, Vomiting : denies: Dysuria, Frequency, Incontinent Skin: denies: Rash, Lesions Musculoskeletal: reports: Extremity swelling. denies: Neck pain, Back pain, Extremity pain Neurologic: reports: Generalized weakness. denies: Focal weakness, Numbness, Difficulty speaking, Near syncope, Headache, Head injury, LOC Immunocompromised: denies: Immunocompromised PD PAST MEDICAL HISTORY - Past Medical History Cardiovascular: Atrial fibrillation Neuro: CVA, TIA GI: GERD : Benign prostate hypertrophy HEENT: Chronic vision loss, Glaucoma - Past Surgical History Past Surgical History: Yes - Present Medications Home Medications: Ambulatory Orders Medication Instructions Recorded Confirmed Brinzolamide 1% Ophth Drops [Azopt 1 drops RIGHTEYE BID 12/24/16 12/28/16 1% Ophth Drops] Omeprazole [PriLOSEC] 20 mg PO BIDAC 12/24/16 12/28/16 Tamsulosin HCl [Flomax] 0.4 mg PO QPM 12/24/16 12/28/16 Aspirin 325 mg ORAL DAILY 12/28/16 12/28/16 Atorvastatin [Lipitor] 10 mg ORAL DAILY 12/28/16 12/28/16 Bimatoprost 0.01% Ophth Dops 1 drops RIGHTEYE DAILY 12/28/16 12/28/16 [Lumigan 0.01% Ophth Drops] Brimonidine Tartrate/Timolol 1 drops RIGHTEYE BID 12/28/16 12/28/16 [Combigan 0.2%-0.5% Eye Drops] Lisinopril 5 mg ORAL DAILY 12/28/16 12/28/16 levETIRAcetam [Keppra] 1,000 mg PO BID #80 tablet 12/28/16 - Allergies Allergies/Adverse Reactions: Allergies Allergy/AdvReac Type Severity Reaction Status Date / Time amoxicillin Allergy Unknown Verified 12/24/16 16:10 - Social History Does the pt smoke?: Yes Smoking Status: Current every day smoker Does the pt drink ETOH?: Yes Does the pt have substance abuse?: No - Immunizations Immunizations are current?: Yes - POLST Patient has POLST: No PD ED PE NORMAL - Vitals Vital signs reviewed: Yes - General General: Alert and oriented X 3, No acute distress - HEENT HEENT: Atraumatic, PERRL - Neck Neck: Supple, no meningeal sign, No JVD - Cardiac Cardiac: RRR, No murmur - Respiratory Respiratory: No respiratory distress, Clear bilaterally - Abdomen Abdomen: Soft, Non tender, Non distended - Derm Derm: Normal color, No rash - Neuro Neuro: Alert and oriented X 3, motion graphics designer 2-12 intact, No motor deficit, No sensory deficit, Normal speech - Psych Psych: Normal mood, Normal affect PD ED PE EXPANDED - Extremities Extremities: Pedal edema bilateral Results - Vitals Vitals: Vital Signs - 24 hr 03/12/17 03/12/17 03/12/17 16:41 19:40 20:35 Temperature 36.3 C L Heart Rate 66 60 50 L Respiratory 18 12 16 Rate Blood Pressure 145/73 H 123/61 124/64 O2 Saturation 100 100 99 Oxygen O2 Source Room air - EKG (time done) 1712 Rate: Rate (enter#) (61) Rhythm: NSR [place]: Normal Intervals: RBBB QRS: Normal Ischemia: Normal ST segments Compare to prior EKG: Unchanged from prior EKG - Labs Labs: Laboratory Tests 03/12/17 03/12/17 19:00 19:00 WBC 7.0 RBC 4.29 L Hgb 14.1 Hct 42.3 MCV 98.7 H MCH 32.9 H MCHC 33.3 RDW 12.9 Plt Count 195 MPV 9.1 Neut # 4.1 Lymph # 2.0 Cochran # 0.7 Eos # 0.2 Baso # 0.0 Absolute Nucleated RBC 0.00 Nucleated RBC % 0.0 Sodium 136 Potassium 4.2 Chloride 102 Carbon Dioxide 26 Anion Gap 8.0 BUN 15 Creatinine 0.9 Estimated GFR (MDRD) 79 L Glucose 107 H Calcium 8.5 Phosphorus 3.1 Magnesium 2.0 Total Bilirubin 0.5 AST 20 ALT 13 Alkaline Phosphatase 62 Total Protein 6.3 L Albumin 3.4 Globulin 2.9 Albumin/Globulin Ratio 1.2 Lipase 33 PD MEDICAL DECISION MAKING - ED course Complexity details: reviewed old records, reviewed results, re-evaluated patient , considered differential, d/w patient, d/w family ED course: Patient was seen and examined at bedside. Patient was well appearing. Patient stated that he wanted to go home but was willing to wait for routine blood work. when patient's diagnostics came back they were within normal limits. Patient required no further work up at this time and was stable for discharge with outpatient follow up. Departure - Departure Disposition: 01 Home, Self Care Clinical Impression: Dizziness Condition: Good Instructions: ED Dizziness [facility]O Follow-Up: JOSHUA MICHAEL MD [Primary Care Provider] - Within 3 Days Comments: Your diagnostics today were within normal limits. It is difficult to say what caused your dizziness but it could have been secondary to your heart rate. You should make sure you stay well hydrated and try to follow up with your pmd this week. You may return to the emergency department at any time for new, worsening or uncontrollable symptoms. Discharge Date/Time: 03/12/17 21:00
== END 2017-03-12 21:00 | disposition home or self-care (01) ==
LOC: ED 16:36
DX: R42 Dizziness and giddiness (principal); R94.31 Abnormal electrocardiogram [ECG] [EKG]; F17.200 Nicotine dependence, unspecified, uncomplicated; Z86.73 Personal history of transient ischemic attack (TIA), and cerebral infarction without residual deficits
CPT/HCPCS: 36415; 80053; 83690; 83735; 84100; 85025; 93005; 99283

== ENCOUNTER 2017-09-06 15:46 | Outpatient (CLI) | payer OTHER ==
--- NOTE | 2017-09-07 10:37 | XRAY Report ---
TWO VIEW CHEST: 09/06/2017 CLINICAL INDICATION: Cough. COMPARISON: 12/27/2016. FINDINGS: Frontal and lateral views of the chest demonstrate a left subclavian dual chamber pacemaker in place. The cardiac silhouette is not enlarged. The lungs are clear. No effusion or pneumothorax is seen. IMPRESSION: NORMAL CHEST. TD: 09/07/2017 10:37
== END 2017-09-06 15:47 | disposition home or self-care (01) ==
LOC: DI.S 15:46
PROVIDERS: ATTEND Physician Assistant
DX: R05 Cough (principal); R06.2 Wheezing; Z87.891 Personal history of nicotine dependence
CPT/HCPCS: 71046